=== PATIENT | male | born 1950 | race African-American/Black ===

== ENCOUNTER 2023-12-29 20:07 | Emergency (ER) | payer SELFPAY ==
[2023-12-29 20:14] VITALS: TEMP 97.6; BMI 25.1
[2023-12-29 20:29] VITALS: BP 126/79; PULSE 102; RESP 14
== END 2023-12-29 22:49 | disposition home or self-care (01) ==
LOC: JER 20:07
DX: R46.4 Slowness and poor responsiveness (principal); T40.2X1A Poisoning by other opioids, accidental (unintentional), initial encounter
CPT/HCPCS: 93005; 93010; 99283-25